=== PATIENT | female | born 1955 ===

== ENCOUNTER → 2018-04-16 | Emergency (ER) | payer OTHER ==
[~2018-04-16] VITALS: Ht 152.4 cm; Wt 61.2 kg
[~2018-04-16] MED LIST: AMPICILLIN500 MG/VIA; BUSPIRONE HCL15 MG; CLONAZEPAM0.5 MG; CONEX TABLET1 EACH; LIPITOR20 MG; RESTORIL15 MG; SYNTHROID50 MCG
== END | disposition home or self-care (01) ==
LOC: ER 07:16
DX: R07.89 Other chest pain (principal); F41.8 Other specified anxiety disorders

== ENCOUNTER 2019-02-17 12:16 | Emergency (ER) | payer OTHER ==
[~2019-02-17] VITALS: Ht 152.4 cm; Wt 61.2 kg
[2019-02-17] MEDS ORDERED: ZOCOR20 MG (12:28)
== END 2019-02-17 17:43 | disposition home or self-care (01) ==
LOC: ER 12:16
DX: R10.11 Right upper quadrant pain (principal)